=== PATIENT | female | born 1980 | race Caucasian/White ===

== ENCOUNTER 2022-08-17 10:55 | Emergency (ER) | payer BC, OTHER ==
[~2022-08-17] VITALS: Ht 160 cm; Wt 68.0 kg
[~2022-08-17 10:55] MED LIST: CLIN75CA2 PO; IBP600T1 PO; PNV1CAPS13 PO
--- NOTE | 2022-08-17 11:37 | ED Chest Pain ---
General Chief Complaint: Chest Pain Stated Complaint: ABNORMAL EKG Source: patient Exam Limitations: no limitations History of Present Illness Date Seen by Provider: Aug 17, 2022 Time Seen by Provider: 11:05 Initial Comments 42-year-old female presents to the ER from the [facility] walk-in clinic for concerns of an abnormal EKG. Read out on EKG from the clinic states "inferior ST elevation, consider acute ischemia." She reports mid to right sided chest pain started around 3:30 AM this morning, states she was up letting the dog out and the pain started during this. Reports she was also lightheaded when the pain started. Denies being diaphoretic with the pain. Denies shortness of air, but states pain is worse with deep breathing. States the pain was 8/10 when it started, and is currently a 1-2 out of 10. Describes the pain as pressure, st ates it is nonradiating. She was given 324 of aspirin by the [facility] clinic. She denies nausea/vomiting, abdominal pain, headache, cough, fever/chills. She states she does not have any medical problems, does not take any medications. She does vape and used to smoke cigarettes. She reports family history HTN and "heart problems," she was unable to describe the heart problems specifically. Denies family history of diabetes. Severity/Quality: mild Location: central, other (right side) Allergies and Home Medications Allergies Coded Allergies: No Known Drug Allergies (Unverified , 08/17/22) Patient Home Medication List Home Medication List Reviewed: Yes Ibuprofen (Motrin) 600 Mg Tab, 600 MG PO Q6H PRN, (Reported) Entered as Reported by: CUCO BURT on 04/24/12 0936 Pnv Comb.no58/Iron Bisgly/Fa ( Capsule) 1 Each Capsule, 1 EACH PO, (Reported) Entered as Reported by: JULIET ANTONIO on 04/13/12 0754 Review of Systems Review of Systems Constitutional: see HPI Past Ujeclhq-Syvvyt-Asuqbw Hx Past Medical History Reproductive Disorders: No Physical Exam Vital Signs Vital Signs - First Documented 08/17/22 11:05 Temp 35.8 Pulse 86 Resp 16 B/P (MAP) 142/95 (111) Pulse Ox 100 O2 Delivery Room Air Capillary Refill : Height, Weight, BMI Height: '" Weight: lbs. oz. kg; BMI Method:Stated General Appearance: No Apparent Distress, WD/WN Neck: Normal Inspection, Supple Respiratory: Chest Non Tender, Lungs Clear, Normal Breath Sounds, No Accessory Muscle Use, No Respiratory Distress Cardiovascular: Regular Rate, Rhythm, No Edema, No Gallop, No JVD, No Murmur Gastrointestinal: Normal Bowel Sounds, No Organomegaly, Non Tender, Soft Extremity: Normal Inspection, Normal Range of Motion Neurologic/Psychiatric: Alert, Oriented x3, Normal Mood/Affect Skin: Normal Color, Warm/Dry Progress/Results/Core Measures Results/Orders Lab Results Laboratory Tests Test 08/17/22 11:30 Range/Units White Blood Count 10.9 4.3-11.0 10^3/uL Red Blood Count 3.99 3.80-5.11 10^6/uL Hemoglobin 13.6 11.5-16.0 g/dL Hematocrit 39 35-52 % Mean Corpuscular Volume 99 80-99 fL Mean Corpuscular Hemoglobin 34 25-34 pg Mean Corpuscular Hemoglobin Concent 35 32-36 g/dL Red Cell Distribution Width 11.9 10.0-14.5 % Platelet Count 313 130-400 10^3/uL Mean Platelet Volume 9.0 9.0-12.2 fL Immature Granulocyte % (Auto) 0 % Neutrophils (%) (Auto) 70 42-75 % Lymphocytes (%) (Auto) 22 12-44 % Monocytes (%) (Auto) 6 0-12 % Eosinophils (%) (Auto) 1 0-10 % Basophils (%) (Auto) 1 0-10 % Neutrophils # (Auto) 7.7 1.8-7.8 10^3/uL Lymphocytes # (Auto) 2.4 1.0-4.0 10^3/uL Monocytes # (Auto) 0.6 0.0-1.0 10^3/uL Eosinophils # (Auto) 0.1 0.0-0.3 10^3/uL Basophils # (Auto) 0.1 0.0-0.1 10^3/uL Immature Granulocyte # (Auto) 0.0 0.0-0.1 10^3/uL Prothrombin Time 12.8 12.2-14.7 SEC INR Comment 0.9 0.8-1.4 Activated Partial Thromboplast Time 27 24-35 SEC Sodium Level 140 135-145 MMOL/L Potassium Level 4.1 3.6-5.0 MMOL/L Chloride Level 106 98-107 MMOL/L Carbon Dioxide Level 23 21-32 MMOL/L Anion Gap 11 5-14 MMOL/L Blood Urea Nitrogen 12 7-18 MG/DL Creatinine 0.69 0.60-1.30 MG/DL Estimat Glomerular Filtration Rate 112 BUN/Creatinine Ratio 17 Glucose Level 89 70-105 MG/DL Calcium Level 9.1 8.5-10.1 MG/DL Corrected Calcium 8.9 8.5-10.1 MG/DL Magnesium Level 2.0 1.6-2.4 MG/DL Total Bilirubin 1.3 H 0.1-1.0 MG/DL Aspartate Amino Transf (AST/SGOT) 16 5-34 U/L Alanine Aminotransferase (ALT/SGPT) 19 0-55 U/L Alkaline Phosphatase 62 40-136 U/L Myoglobin 27.6 10.0-92.0 NG/ML Troponin I < 0.028 <0.028 NG/ML Total Protein 7.4 6.4-8.2 GM/DL Albumin 4.3 3.2-4.5 GM/DL My Orders Orders - JENN HENDERSON APRN Ekg Tracing (08/17/22 11:05) Cbc With Automated Diff (08/17/22 11:14) Magnesium (08/17/22 11:14) Chest 1 View, Ap/Pa Only (08/17/22 11:14) Comprehensive Metabolic Panel (08/17/22 11:14) Myoglobin Serum (08/17/22 11:14) Protime With Inr (08/17/22 11:14) Partial Thromboplastin Time (08/17/22 11:14) Monitor-Rhythm Ecg Trace Only (08/17/22 11:14) Ed Iv/Invasive Line Start (08/17/22 11:14) Troponin I Pepin (08/17/22 11:14) Vital Signs/I&O 08/17/22 08/17/22 11:05 12:50 Temp 35.8 Pulse 86 83 Resp 16 19 B/P (MAP) 142/95 (111) 119/78 Pulse Ox 100 100 O2 Delivery Room Air Room Air Progress Progress Note #1: Time: 11:38 Progress Note Patient seen and evaluated, resting on bed, no acute distress. Based on exam and symptoms, differential diagnoses include OH, ACS, pleuritis, GERD, musculoskeletal pain, myocarditis, pneumonia. Cardiac work-up initiated occluding CBC, CMP, troponin, magnesium, coags, chest x-ray and EKG. Progress Note #2: Time: 12:38 Progress Note Labs and x-rays reviewed, CBC grossly normal, CMP grossly normal, coags grossly normal, troponin negative. Chest x-ray reviews no cardiopulmonary process. Discussed results with patient. Patient agreeable to discharge. Return precautions provided. Initial ECG Impression Date: Aug 17, 2022 Initial ECG Impression Time: 11:22 Initial ECG Rate: 84 Initial ECG Rhythm: Normal Sinus Initial ECG Intervals: Normal Initial ECG Impression: Normal Initial ECG Comparisson: No Previous ECG Available Diagnostic Imaging Diagonstic Imaging: Xray Plain Films/CT/US/NM/MRI: chest Comments [facility], [place] NAME: TASIA ALEMAN [facility] REC#: [id number] PT STATUS: REG ER : 1980 PHYSICIAN: JENN HENDERSON APRN ADMIT DATE: 08/17/22/ER Draft Date of Exam:08/17/22 CHEST 1 VIEW, AP/PA ONLY EXAMINATION: Chest 1 view HISTORY: Chest pain. COMPARISON: None available. FINDINGS: The lung volumes are normal. No focal consolidation is seen. No large pleural effusion or pneumothorax is seen. The cardiomediastinal silhouette is normal in size and contour. No acute osseous abnormality is seen. IMPRESSION: 1. No acute pleuroparenchymal process. Dictated on workstation # [id number] Dict: 08/17/22 1229 Trans: 08/17/22 1232 [facility] [id number] Interpreted by: JOSE ANTONIO ELLIS DO Electronically signed by: Departure Impression Primary Impression: Chest wall pain Disposition: 01 HOME, SELF-CARE Condition: Stable Departure-Patient Inst. Decision time for Depature: 12:41 Referrals: NO,LOCAL PHYSICIAN (PCP/Family) Primary Care Physician Patient Instructions: Chest Pain That Is Not Caused by the Heart (DC) Add. Discharge Instructions: Establish care with a primary care provider and follow-up with them. Return for any new, concerning, or worsening symptoms. Return for worsening chest pain with sweating, nausea, vomiting, shortness of air. All discharge instructions reviewed with patient and/or family. Voiced understanding. JENN HENDERSON APRN Aug 17, 2022 11:37
[2022-08-17 11:43] LABS: BASOPHILS # (AUTO) 0.1 10^3/uL (0.0-0.1); BASOPHILS % (AUTO) 1 % (0-10); EOSINOPHILS # (AUTO) 0.1 10^3/uL (0.0-0.3); EOSINOPHILS % (AUTO) 1 % (0-10); HEMATOCRIT 39 % (35-52); HEMOGLOBIN 13.6 g/dL (11.5-16.0); LYMPHOCYTES # (AUTO) 2.4 10^3/uL (1.0-4.0); LYMPHOCYTES % (AUTO) 22 % (12-44); MEAN CORPUSCULAR HEMOGLOBIN 34 pg (25-34); MEAN CORPUSCULAR HGB CONC 35 g/dL (32-36); MEAN CORPUSCULAR VOLUME 99 fL (80-99); MONOCYTES # (AUTO) 0.6 10^3/uL (0.0-1.0); MONOCYTES % (AUTO) 6 % (0-12); NEUTROPHILS # (AUTO) 7.7 10^3/uL (1.8-7.8); NEUTROPHILS % (AUTO) 70 % (42-75); PLATELET COUNT 313 10^3/uL (130-400); WHITE BLOOD COUNT 10.9 10^3/uL (4.3-11.0)
[2022-08-17 12:00] LABS: INR 0.9 (0.8-1.4); PROTHROMBIN TIME PATIENT 12.8 SEC (12.2-14.7)
[2022-08-17 12:16] LABS: ALBUMIN 4.3 GM/DL (3.2-4.5); BILIRUBIN,TOTAL 1.3 MG/DL (0.1-1.0); CALCIUM 9.1 MG/DL (8.5-10.1); CREATININE SERUM 0.69 MG/DL (0.60-1.30); POTASSIUM 4.1 MMOL/L (3.6-5.0); TOTAL PROTEIN 7.4 GM/DL (6.4-8.2)
--- NOTE | 2022-08-17 12:33 | Diagnostic Imaging Report ---
EXAMINATION: Chest 1 view HISTORY: Chest pain. COMPARISON: None available. FINDINGS: The lung volumes are normal. No focal consolidation is seen. No large pleural effusion or pneumothorax is seen. The cardiomediastinal silhouette is normal in size and contour. No acute osseous abnormality is seen. IMPRESSION: 1. No acute pleuroparenchymal process. Dictated by: Dictated on workstation # [id number]
[2022-08-17 12:50] VITALS: BP 119/78
== END 2022-08-17 12:50 | disposition home or self-care (01) ==
LOC: EDUNIT# 10:55 → ER 10:58
DX: R07.89 Other chest pain (principal); F17.210 Nicotine dependence, cigarettes, uncomplicated; F17.290 Nicotine dependence, other tobacco product, uncomplicated
CPT/HCPCS: 36415; 71045; 80053; 83735; 83874; 84484; 85025; 85610; 85730; 93005; 93041